=== PATIENT | male | born 1975 | race Caucasian/White ===

== ENCOUNTER 2019-04-13 08:04 | Emergency (ER) | payer BC, OTHER ==
--- NOTE | 2019-04-13 08:13 | ED Physician Documentation ---
PD HPI URI - Stated complaint Stated Complaint: COUGH - History obtained from History obtained from: Patient - History of Present Illness Timing - onset: How many days ago (several) Timing duration: Days Timing details: Abrupt onset, Still present Associated symptoms: Fever, Sore throat, Productive cough, Chest pain (with coughing), Dyspnea Contributing factors: No: Sick contact, COPD / asthma Similar symptoms before: Diagnosis (bronchitis 3 weeks ago, Rx with abx and was better.) Review of Systems Constitutional: reports: Fever, Chills, Myalgias Nose: reports: Congestion. denies: Rhinorrhea / runny nose Throat: denies: Sore throat Cardiac: reports: Chest pain / pressure (with cough) Respiratory: reports: Dyspnea, Cough, Wheezing GI: denies: Nausea, Vomiting, Diarrhea Skin: denies: Rash Neurologic: denies: Altered mental status, Headache PD PAST MEDICAL HISTORY - Past Medical History Cardiovascular: None Respiratory: None Neuro: None Endocrine/Autoimmune: None - Present Medications Home Medications: Ambulatory Orders Medication Instructions Recorded Confirmed Albuterol Sulf [Ventolin Hfa 1 - 2 puffs INH Q4HR PRN #1 inhaler 04/13/19 Inhaler] Benzonatate [Tessalon Perle] 100 - 200 mg PO TID PRN #30 capsule 04/13/19 Doxycycline Hyclate 100 mg PO BID #14 capsule 04/13/19 dexAMETHasone [Decadron] 4 mg PO DAILY #5 tablet 04/13/19 - Allergies Allergies/Adverse Reactions: Allergies Allergy/AdvReac Type Severity Reaction Status Date / Time No Known Drug Allergies Allergy Verified 04/13/19 08:26 PD ED PE NORMAL - Vitals Vital signs reviewed: Yes - General General: Alert and oriented X 3, No acute distress, Well developed/nourished - HEENT HEENT: Ears normal, Pharynx benign - Neck Neck: Supple, no meningeal sign, No adenopathy - Cardiac Cardiac: RRR, No murmur - Respiratory Respiratory: No: Clear bilaterally (no congested sounds; but has some mild expiratory wheezing posteriorly. Deep breathing triggers coughing. ) - Derm Derm: Normal color, Warm and dry - Neuro Neuro: Alert and oriented X 3, No motor deficit, Normal speech Results - Vitals Vitals: Vital Signs - 24 hr 04/13/19 04/13/19 08:25 08:50 Temperature 36.1 C L Heart Rate 71 81 Respiratory 20 16 Rate Blood Pressure 131/92 H O2 Saturation 95 Oxygen O2 Source Room air Departure - Departure Disposition: 01 Home, Self Care Clinical Impression: Upper respiratory tract infection Qualifiers: URI type: unspecified URI Qualified Code(s): J06.9 - Acute upper respiratory infection, unspecified Condition: Stable Record reviewed to determine appropriate education?: Yes Instructions: ED Upper Resp Infec Abx Tx Follow-Up: BRINA CHILDS ARNP [Primary Care Provider] - Prescriptions: Albuterol Sulf [Ventolin Hfa Inhaler] 1 - 2 puffs INH Q4HR PRN #1 inhaler PRN Reason: Shortness Of Air/Wheezing Benzonatate [Tessalon Perle] 100 - 200 mg PO TID PRN #30 capsule PRN Reason: Cough dexAMETHasone [Decadron] 4 mg PO DAILY #5 tablet Doxycycline Hyclate 100 mg PO BID #14 capsule Comments: Stay well-hydrated and drink lots of fluids. Tylenol or ibuprofen if needed for fevers or pains. Use benzonatate for cough suppression. We will treat this is possibly bacterial bronchitis versus viral bronchitis. Will use an albuterol inhaler 2 puffs 4 times a day and extra times as needed for cough and wheezing. Decadron steroid daily for the next 5 days for inflammation of the bronchials. This will reduce coughing. Doxycycline antib iotic twice daily for a week. Off work for a day or 2. Recheck if not improving over the next couple of days. Though you may have a some degree of cough persist for a week or more Forms: Activity restrictions
[2019-04-13] MEDS ORDERED: DEXAMETHASONE 10 MG/ML VIAL PO STA (08:36)
[2019-04-13] MEDS ORDERED: ALBUTEROL NEB 2.5 MG/3 ML INH STA (08:36)
[2019-04-13] MEDS ORDERED: CHERRY SYRUP 10 ML UDC PO ONE (08:36)
[2019-04-13] MEDS ORDERED: DOXYCYCLINE 100 MG TABLET PO STA (08:36)
[2019-04-13] MEDS ORDERED: BENZONATATE 100 MG CAPSULE PO STA (08:36)
[2019-04-13 09:26] VITALS: BP 126/79
== END 2019-04-13 09:27 | disposition home or self-care (01) ==
LOC: ED 08:04
DX: J06.9 Acute upper respiratory infection, unspecified (principal)
CPT/HCPCS: 94640; 99283; A9270